=== PATIENT | male | born 1965 | race American Indian/Alaskan Native ===

== ENCOUNTER 2020-12-01 17:46 | Emergency (ER) | payer SELFPAY ==
[2020-12-01 18:32] VITALS: BP 111/74
[2020-12-01] MEDS ORDERED: HYDROcodone/ACETAMINOPHEN 7.5-325MG TAB PO ONE (20:04)
[2020-12-01] MEDS ORDERED: IBUPROFEN 800 MG TAB PO ONE (20:04)
--- NOTE | 2020-12-01 20:04 | Emergency Department Report ---
- General Chief complaint: Skin/Abscess/Foreign Body Stated complaint: BOIL Time Seen by Provider: 12/01/20 19:47 Source: patient Mode of arrival: Ambulatory Limitations: No Limitations - History of Present Illness Initial comments: The patient was evaluated in the emergency department for symptoms described in the history of present illness. He/she was evaluated in the context of the global COVID-19 pandemic, which necessitated consideration that the patient might be at risk for infection with the virus that causes COVID-19. Institutional protocols and algorithms that pertain to the evaluation of patients at risk for COVID-19 are in a state of rapid change based on inform ation released by regulatory bodies including the CDC and federal and state organizations. These policies and algorithms were followed during the patient's care in the emergency department. Please note that these policies, procedures and recommendations changed on a rapid basis. 54-year-old -[place] male presents to the emergency room for a large boil/abscess to his left buttocks x4 days. Patient states he has never had this before. Patient denies any fever or chills. He states it has been draining for 4 days where he is messed up underwear. Patient reports a past medical history of lupus. He states that he takes beclomethasone for his scalp. He currently does not have a primary care provider. He states that makes it worse is standing and walking and any movement. Patient reports his pain is a 9.5 out of 10. He states he was following someone in [employer] for his lupus. He denies any known drug allergies. MD complaint: abscess/boil Onset/Timin -: days(s) Location: buttocks (Left) Severity: severe Severity scale (0 -10): 9 Quality: stabbing, sharp Consistency: constant Improves with: none Worsens with: palpation, movement Associated symptoms: denies other symptoms Treatments Prior to Arrival: none - Related Data Previous Rx's Medication Instructions Recorded Last Taken Type Ibuprofen [Motrin 800 MG tab] 800 mg PO Q8HR PRN #30 tablet 12/01/20 Unknown Rx Sulfamethoxazole/Trimethoprim 1 each PO BID 10 Days #20 tablet 12/01/20 Unknown Rx [Bactrim DS TAB] cephALEXin [Keflex] 500 mg PO Q8HR 10 Days #30 cap 12/01/20 Unknown Rx traMADoL [Ultram 50 MG tab] 50 mg PO Q6HR PRN #12 tablet 12/01/20 Unknown Rx Allergies Allergy/AdvReac Type Severity Reaction Status Date / Time No Known Allergies Allergy Unverified 12/01/20 18:27 Abscess Boil HPI - HPI Chief Complaint: Skin/Abscess/Foreign Body Stated Complaint: BOIL Time Seen by Provider: 12/01/20 19:47 Home Medications: Previous Rx's Medication Instructions Recorded Last Taken Type Ibuprofen [Motrin 800 MG tab] 800 mg PO Q8HR PRN #30 tablet 12/01/20 Unknown Rx Sulfamethoxazole/Trimethoprim 1 each PO BID 10 Days #20 tablet 12/01/20 Unknown Rx [Bactrim DS TAB] cephALEXin [Keflex] 500 mg PO Q8HR 10 Days #30 cap 12/01/20 Unknown Rx traMADoL [Ultram 50 MG tab] 50 mg PO Q6HR PRN #12 tablet 12/01/20 Unknown Rx Allergies/Adverse Reactions: Allergies Allergy/AdvReac Type Severity Reaction Status Date / Time No Known Allergies Allergy Unverified 12/01/20 18:27 ED Review of Systems ROS: Stated complaint: BOIL Other details as noted in HPI Comment: All other systems reviewed and negative ED Past Medical Hx - Past Medical History Additional medical history: LUPUS - Surgical History Past Surgical History?: No - Medications Home Medications: Home Medications Medication Instructions Recorded Confirmed Last Taken Type Ibuprofen [Motrin 800 MG tab] 800 mg PO Q8HR PRN #30 tablet 12/01/20 Unknown Rx Sulfamethoxazole/Trimethoprim 1 each PO BID 10 Days #20 tablet 12/01/20 Unknown Rx [Bactrim DS TAB] cephALEXin [Keflex] 500 mg PO Q8HR 10 Days #30 cap 12/01/20 Unknown Rx traMADoL [Ultram 50 MG tab] 50 mg PO Q6HR PRN #12 tablet 12/01/20 Unknown Rx ED Physical Exam - General Limitations: No Limitations General appearance: alert, in no apparent distress - Head Head exam: Present: atraumatic, normocephalic - Eye Eye exam: Present: normal appearance - ENT ENT exam: Present: mucous membranes moist, normal external ear exam - Neck Neck exam: Present: normal inspection, full ROM - Respiratory Respiratory exam: Absent: accessory muscle use - Cardiovascular Cardiovascular Exam: Present: regular rate - Neurological Exam Neurological exam: Present: alert, oriented X3 - Psychiatric Psychiatric exam: Present: normal affect, normal mood - Expanded Skin Exam Expanded Type of lesion: Present: abscess Distribution of rash: other (Left buttocks) Description of rash: Present: size (7 x 4 cm depth 4 millimeters), erythematous, swelling, discharge, indurated ED Course Vital Signs 12/01/20 12/01/20 18:31 22:07 Temperature 99.0 F Pulse Rate 95 H 68 Respiratory 20 17 Rate Blood Pressure 111/74 O2 Sat by Pulse 96 96 Oximetry ED Medical Decision Making - Lab Data Result diagrams: 12/01/20 20:10 12/01/20 20:10 - Radiology Data Radiology results: report reviewed [facility] [address] [id number] Cat Scan Report Signed Patient: MIKE JEAN-BAPTISTE MR#: [id number] : 1965 Acct:[id number] Age/Sex: 54 / M ADM Date: 12/01/20 Loc: ED Attending Dr: Ordering Physician: DELMA JORGE Date of Service: 12/01/20 Procedure(s): CT abdomen pelvis w con Accession Number(s): [id number] cc: DELMA JORGE CT ABDOMEN AND PELVIS WITH CONTRAST INDICATION / CLINICAL INFORMATION: Large abscess left buttocks. TECHNIQUE: Axial CT images were obtained through the abdomen and pelvis after 100 mL of Omnipaque [address] scans at this location are performed using CT dose reduction for ALARA by means of automated exposure control. COMPARISON: None available. FINDINGS: LOWER CHEST: No significant abnormality. LIVER: No significant abnormality. GALLBLADDER: No significant abnormality. BILE DUCTS: No significant abnormality. PANCREAS: No significant abnormality. SPLEEN: No significant abnormality. ADRENALS: No significant abnormality. RIGHT KIDNEY / URETER: No significant abnormality. LEFT KIDNEY / URETER: No significant abnormality. STOMACH / SMALL BOWEL: No significant abnormality. COLON: No significant abnormality. APPENDIX: No significant abnormality. PERITONEUM: No free fluid. No free air. No fluid collection. LYMPH NODES: Bilateral inguinal lymph nodes are likely reactive. AORTA / ARTERIES: Mild atherosclerotic calcification without acute abnormality. IVC / VEINS: No significant abnormality. URINARY BLADDER: No significant abnormality. REPRODUCTIVE ORGANS: No significant abnormality. ADDITIONAL FINDINGS: There is a superficial cutaneous collection measuring 5.0 x 1.5 cm at the left upper Botox on series 2 image 117. Mild subcutaneous stranding in the bilateral buttocks, left greater than right. SKELETAL SYSTEM: Degenerative changes of the lumbar spine. No aggressive osseous lesion. IMPRESSION: 1. Small cutaneous collection at the left buttocks is nonspecific. No deep fluid collection identified. 2. Bilateral prominent inguinal lymph nodes are likely reactive. Signer Name: Alaina Ley MD Signed: 12/01/2020 9:49 PM Workstation Name: [id number] Transcribed By: DB Dictated By: ALAINA LEY MD Electronically Authenticated By: ALAINA LEY MD Signed Date/Time: 12/01/202148 DD/ 43 TD/TT: - Medical Decision Making 54-year-old -[place] male presents to the emergency room for a large boil/abscess to his left buttocks x4 days. Patient states he has never had this before. Patient denies any fever or chills. He states it has been draining for 4 days where he is messed up underwear. Patient reports a past medical history of lupus. He states that he takes beclomethasone for his scalp. He currently does not have a primary care provider. He states that makes it worse is standing and walking and any movement. Patient reports his pain is a 9.5 out of 10. He states he was following someone in [employer] for his lupus. He denies any known drug allergies. CBC CMP, ESR, LACTIC ACID CT abdomen pelvis with contrast Patient will be discharged home on Bactrim and Keflex pain medicine tramadol ibuprofen. Patient is encouraged to follow-up with her primary care provider. Critical care attestation.: If time is entered above; I have spent that time in minutes in the direct care of this critically ill patient, excluding procedure time. ED Disposition Clinical Impression: Abscess of buttock, left Disposition: 01 HOME / SELF CARE / HOMELESS Is pt being admited?: No Does the pt Need Aspirin: No Condition: Stable Additional Instructions: Complete antibiotic as prescribe take medication as needed. Prescriptions: Sulfamethoxazole/Trimethoprim [Bactrim DS TAB] 1 each PO BID 10 Days #20 tablet cephALEXin [Keflex] 500 mg PO Q8HR 10 Days #30 cap Ibuprofen [Motrin 800 MG tab] 800 mg PO Q8HR PRN #30 tablet PRN Reason: Pain , Severe (7-10) traMADoL [Ultram 50 MG tab] 50 mg PO Q6HR PRN #12 tablet PRN Reason: Pain Referrals: PRIMARY CARE, [Primary Care Provider] - 3-5 Days [facility] [Provider Group] - 3-5 Days Forms: Work/School Release Form(ED)
[2020-12-01] MEDS ORDERED: TETANUS,DIPH,PERTUSS(ACELL) VACCINE 0.5 ML SYRINGE IM ONE (20:06)
[2020-12-01 21:07] LABS: Basophils % (Auto) 0.4 % (0.0-1.8); Eosinophils # (Auto) 0.2 K/mm3 (0.0-0.4); Eosinophils % (Auto) 1.9 % (0.0-4.3); Hematocrit 40.3 % (35.5-45.6); Lymphocytes # (Auto) 2.5 K/mm3 (1.2-5.4); Lymphocytes % (Auto) 20.7 % (13.4-35.0); Mean Corpuscular HGB Conc 35 % (32-34); Mean Corpuscular Volume 93 fl (84-94); Monocytes # (Auto) 1.8 K/mm3 (0.0-0.8); Monocytes % (Auto) 15.2 % (0.0-7.3); Platelet Count 275 K/mm3 (140-440); Red Blood Count 4.35 M/mm3 (3.65-5.03); Red Cell Distribution Width 13.1 % (13.2-15.2)
[2020-12-01 21:13] LABS: Alanine Aminotransferase 18 units/L (7-56); Albumin 3.7 g/dL (3.9-5); BUN/Creatinine Ratio 12; Blood Urea Nitrogen 11 mg/dL (9-20); Calcium 9.2 mg/dL (8.4-10.2); Hemolysis Index 5
[2020-12-01 21:49] LABS: Erythrocyte Sedimentation Rate 60 mm/Hr (0-20)
--- NOTE | 2020-12-01 21:54 | Cat Scan Report ---
CT ABDOMEN AND PELVIS WITH CONTRAST INDICATION / CLINICAL INFORMATION: Large abscess left buttocks. TECHNIQUE: Axial CT images were obtained through the abdomen and pelvis after 100 mL of Omnipaque [address] scans at this location are performed using CT dose reduction for ALARA by means of automated exposure control. COMPARISON: None available. FINDINGS: LOWER CHEST: No significant abnormality. LIVER: No significant abnormality. GALLBLADDER: No significant abnormality. BILE DUCTS: No significant abnormality. PANCREAS: No significant abnormality. SPLEEN: No significant abnormality. ADRENALS: No significant abnormality. RIGHT KIDNEY / URETER: No significant abnormality. LEFT KIDNEY / URETER: No significant abnormality. STOMACH / SMALL BOWEL: No significant abnormality. COLON: No significant abnormality. APPENDIX: No significant abnormality. PERITONEUM: No free fluid. No free air. No fluid collection. LYMPH NODES: Bilateral inguinal lymph nodes are likely reactive. AORTA / ARTERIES: Mild atherosclerotic calcification without acute abnormality. IVC / VEINS: No significant abnormality. URINARY BLADDER: No significant abnormality. REPRODUCTIVE ORGANS: No significant abnormality. ADDITIONAL FINDINGS: There is a superficial cutaneous collection measuring 5.0 x 1.5 cm at the left u pper Botox on series 2 image 117. Mild subcutaneous stranding in the bilateral buttocks, left greater than right. SKELETAL SYSTEM: Degenerative changes of the lumbar spine. No aggressive osseous lesion. IMPRESSION: 1. Small cutaneous collection at the left buttocks is nonspecific. No deep fluid collection identifie d. 2. Bilateral prominent inguinal lymph nodes are likely reactive. Signer Name: Favian Ley MD Signed: 12/01/2020 9:49 PM Workstation Name: [id number]
== END 2020-12-01 22:35 | disposition home or self-care (01) ==
LOC: ED 17:46
DX: L02.31 Cutaneous abscess of buttock (principal); M32.9 Systemic lupus erythematosus, unspecified
CPT/HCPCS: 36415; 74177; 80053; 82140; 85025; 85652; 90471; 90715; 99284; Q9967